=== PATIENT | female | born 1955 | race Caucasian/White ===

== ENCOUNTER 2024-08-03 14:01 | Inpatient (IN) | payer MEDICARE, OTHER, SELFPAY ==
[2024-08-03 12:26] VITALS: BP 123/80
[2024-08-03 12:52] LABS: % Eosinophils 3.2 % (0-6); % Immature Granulocytes 0.4 % (0-0.5); % Lymphocytes 39.9 % (20.5-51.1); % Monocytes 7.5 % (1.7-9.3); Absolute Basophils 0.1 10^3/uL (0-0.2); Absolute Eosinophils 0.3 10^3/uL (0-0.7); Absolute Lymphocytes 3.1 10^3/uL (1.2-3.4); Absolute Monocytes 0.6 10^3/uL (0.1-0.6); Absolute Neutrophils 3.7 10^3/uL (1.4-6.5); Hematocrit 33.7 % (37.0-47.0); Hemoglobin 10.9 g/dL (12.0-16.0); Mean Corp Hgb Conc. 32.3 g/dL (33.0-37.0); Mean Corpuscular Hgb 29.3 pg (27.0-31.0); Mean Corpuscular Volume 90.6 fL (81.0-99.0); Mean Platelet Volume 9.2 fL (7.4-10.4); Nucleated Red Blood Cells % 0 %; Platelet Count 281 10^3/uL (130-400); Red Blood Cell Count 3.72 10^6/uL (4.20-5.40); Red Cell Dist. Width 13.8 % (11.5-14.5); White Blood Cell Count 7.7 10^3/uL (4.8-10.8)
[2024-08-03 12:57] VITALS: BMI 38.7
[2024-08-03 13:05] LABS: APTT 32.2 Sec (23.4-35.0); INR 1.31; PT 16.3 Sec (11.4-14.6)
[2024-08-03 13:08] LABS: ALT (SGPT) 20 U/L (0-35); AST (SGOT) 22 U/L (14-36); Blood Urea Nitrogen 38 mg/dl (7-17); Calcium 9.2 mg/dl (8.4-10.2); Carbon Dioxide 21 mmol/L (22-30); Chloride 106 mmol/L (98-107); Estimated Creatinine Clearance 71 ml/min; Glucose 102 mg/dl (70-99); Potassium 4.2 mmol/L (3.5-5.1); Sodium 139 mmol/L (135-145); Total Bilirubin 0.9 mg/dl (0.2-1.3); Total Protein 6.3 g/dl (6.3-8.2); eGFR > 60.00
--- NOTE | 2024-08-03 13:27 | ED.GENMED ---
History of Present Illness
General
Chief Complaint: Rectal Bleeding
Source: patient
Exam Limitations: none
Time Seen by Provider: 08/03/24 13:03
History of Present Illness
History of Present Illness:
See MDM
Past History
Past History
ED Past Medical History: Arrthythmia, Cancer, Hypercholesterolemia and Hypothyroidism
ED Past Surgical History: Cholecystectomy and Other
Social History
Tobacco: Non-smoker
Alcohol: Occasional
Personal:
Living: with family
Employment: Employed
Family History
Family History: Other (a sister with atrial fibrillation)
Phy Exam
Physical Exam
Physical Exam:
See MDM
Course
Orders/Labs/Results
Orders:
Orders
08/03/24 12:30
Electrocardiogram (*1) Urgent
Reason for Study: Vertigo / Dizzy
EKG- Treatment ONCE
08/03/24 12:36
Cardiac Monitoring- Treatment ONCE
IV Insert/Care/Rem.- Treatment PRN
O2 Therapy [RESP] Urgent
Titrate/Wean O2 to maintain O2 sat greater than (%): 93
Special Instructions: MAINTAIN CONTINOUS O2 SATS > OR = 93%
08/03/24 12:38
Type+Screen Urgent
Complete Blood Count/With Diff Urgent
Comprehensive Metabolic Panel Urgent
PTT Urgent
Prothrombin Time Urgent
08/03/24 13:25
Consult Gastroenterology [GASTROINTESTINAL CONSULT] Routine
Consulting Provider: Jonathon Livingston
Was physician already notified: Yes
08/03/24 13:27
Pantoprazole 80 mg/ 100 mL 8 mg/hr NOW X 1 BAG Pantoprazole 80 mg/100 ml Nss [Protonix] 80 mg in 100 ml IV NOW
Pantoprazole [Protonix IV] 80 mg IV NOW STA
Abnormal Lab Results
08/03/24
12:38
RBC 3.72 L 10^6/uL
(4.20-5.40)
Hgb 10.9 L g/dL
(12.0-16.0)
Hct 33.7 L %
(37.0-47.0)
MCHC 32.3 L g/dL
(33.0-37.0)
PT 16.3 H Sec
(11.4-14.6)
Carbon Dioxide 21 L mmol/L
(22-30)
BUN 38 H mg/dl
(7-17)
Glucose 102 H mg/dl
(70-99)
08/03/24 12:38
08/03/24 12:38
Vital Signs
Initial and Last Documented VS:
Initial Vital Signs
Temp Pulse Resp BP Pulse Ox
98.4 F 87 16 123/80 98
08/03/24 12:26 08/03/24 12:26 08/03/24 12:26 08/03/24 12:26 08/03/24 12:26
Last Documented Vital Signs
Temp Pulse Resp BP Pulse Ox
98.4 F 87 16 123/80 98
08/03/24 12:26 08/03/24 12:26 08/03/24 12:26 08/03/24 12:08/03/24 12:26
MDM/Problems Addressed
Differential Diagnosis Includes:
HPI and MDM Narrative:
69-year-old female presenting for evaluation of mild epigastric discomfort and 1 episode of black stool. Patient is on Eliquis for history of A-fib. However, she is in sinus rhythm and has had an ablation. She took her dose this morning. She
noted the black stool at 10 AM this morning. This is very similar presentation to her upper GI bleeding she had last year. That time, she had an endoscopy showing a nonbleeding gastric ulcer.
Rectal exam performed confirming the melanotic stool. Patient started on PPI bolus and drip and GI made aware
Physical exam
General: Well appearing and non-toxic
HEENT: protecting airway
Neck: appears supple
CV: No evidence of cyanosis
Resp: No accessory muscle use
Abd: Non-distended. Mild epigastric discomfort
Rectal exam: Performed with nurse Jackeline at bedside. Stool is melanotic and guaiac positive
Extremities: Nonpitting dependent edema both legs
Neuro: alert
Psych: Normal affect
Skin: Intact
Problems Addressed including Acute and Chronic Conditions affecting care:
1. Upper GI bleeding
Acuity: acute
Prognosis: unstable
Details: Melena confirmed at bedside. Patient has a baseline anemia. I did have her sign consent for blood if needed during this admission. Patient started on PPI bolus and drip
2. Anemia
Acuity: Chronic
Prognosis: stable
Details: Currently at baseline
Updates
Differential Diagnosis (but not limited to): Stress ulcer, gastric ulcer, peptic ulcer disease
Testing considered: CT abdomen/pelvis but no significant tenderness noted
Drug therapy (if applicable): OTC meds, please see d/c instruction regarding Rx drugs
Amount and/or Complexity of Data Reviewed
Clinical info obtained from: Patient
External data reviewed: N/A
Labs I independently reviewed (but not limited to): Baseline anemia
Radiology: N/A
Pulse Ox: not hypoxic
EKG independently reviewed: N/A
Manager Cardiology: N/A
Critical Care: The high probability of a clinically significant, sudden or life threatening deterioration of the gastroenterology system(s) required my full and direct attention, intervention and personal management. The aggregate critical care time
was 33 minutes. This time is in addition to time spent performing reported procedures but includes the following:
[x] Data Review and interpretation
[x] Patient assessment and monitoring of vital signs
[x] Documentation
[x] Medication orders and management
Risk of Complication:
Social Determinants of health: Good social support
Discussed with other providers: Hospitalist and property accountant
Escalation of Care includes Admit/Obs: Given concern for active upper GI bleeding while on Eliquis, will admit
Occasional wrong word or 'sound a like' substitutions may have occurred due to the inherent limitations of voice recognition software. Read the chart carefully and recognize, using context, where substitutions have occurred.
*Critical Care Note
Total Time (30-74mins, 75-104mins- exclusive of procedures): 33 min
ED Attending Note
-
Portions of this chart may have been created with voice recognition software.� Occasional wrong word or��sound alike� substitutions may have occurred due to the inherent limitations of voice recognition software.
Discharge Plan
Departure
Date of Disposition: 08/03/24
Time of Disposition: 13:31
Admit to: Telemetry
Presentation/result/management discussed w/ accepting MD/DO: Hospitalist
Prescriptions:
No Action
levothyroxine 50 MCG tablet
50 mcg PO DAILY
atorvastatin 20 MG tablet
20 mg PO QPM
sertraline 25 mg Tablet
25 mg PO DAILY
Eliquis 5 mg Tablet
5 mg PO BID
pantoprazole 40 mg Tablet,Delayed Release (Dr/Ec)
40 mg PO BID Qty: 120 0RF
diltiazem HCl 240 mg capsule,extended release 24 hr
240 mg PO DAILY Qty: 90 5RF
Interventions
Interventions:
*Risk Screen - Suicide Last Done: 08/03/24 12:26
*General Assessment Last Done: 08/03/24 12:26
*Neglect/Abuse Screening Last Done: 08/03/24 12:26
ED- Fall Risk Assessment Last Done: 08/03/24 12:57
*ED COVID-19 Vaccine History Last Done: 08/03/24 12:26
MA-Ibjcfd-Vjppqvlglh Assessment Last Done: 08/03/24 12:57
ED- Cardiac Assessment Last Done: 08/03/24 12:57
ED- Pulmonary Assessment Last Done: 08/03/24 12:57
Discharge Date and Time
Print Language: WOLOF
[2024-08-03 13:29] LABS: Alkaline Phosphatase 60 U/L (38-126)
--- NOTE | 2024-08-03 13:51 | HPS.HSE ---
Family Physician
-
Family Physician: Magnus Miles
Chief Complaint
-
black stool
History of Present Illness
69-year-old female past medical history of upper GI bleeding, gastric ulcer, paroxysmal atrial fibrillation, hypercholesteremia, hypothyroidism, chronic back pain, anxiety/depression, presenting with 1 episode of black stool today. She has been
feeling a little bit unwell for the past few day with some dizziness yesterday and shortness of breath with exertion yesterday. She has been having intermittent epigastric pain at times recently but denies any chest pain. Did have some nausea but
no vomiting. Denies fevers or chills.
Patient was admitted last year for black stools and had endoscopy which showed 2 cm hiatal hernia, nonbleeding gastric ulcer.
Drinks alcohol occasionally. Denies smoking
Medical History
Past Medical History
Past Medical History: Reports Other ( upper GI bleeding, gastric ulcer, paroxysmal atrial fibrillation, hypercholesteremia, hypothyroidism, chronic back pain, anxiety/depression,)
Past Surgical History: Reports Other (cataract surgery )
Social History
Tobacco: Non-smoker
Alcohol: Occasional
Drug: None
Family History
Family History: Not pertinent
Allergies / Home Medications
Allergies reflects when Allergies were last updated in [facility].
Home Medications with original date entered in [facility]
Allergy/Medication List:
Allergies
Allergy/AdvReac Type Severity Reaction Status Date / Time
No Known Allergies Allergy Verified 08/03/24 12:30
Home Medications
levothyroxine 50 mcg tablet 50 mcg PO DAILY Thyroid 04/10/13
atorvastatin 20 mg tablet 20 mg PO QPM High Cholesterol 04/17/21
apixaban 5 mg tablet (Eliquis) 5 mg PO BID Blood Clot Prevention/Tx 06/17/23
sertraline 25 mg tablet 25 mg PO DAILY Mental Health/Anxiety 06/17/23
diltiazem HCl 240 mg capsule,24 hr,extended release 240 mg PO DAILY #90 caps 07/22/23
moxifloxacin 0.5 % eye drops 1 drp RIGHT EYE QID 08/03/24
pantoprazole 40 mg tablet,delayed release 40 mg PO QPM Gastrointestinal issue 08/03/24
prednisolone acetate 1 % eye drops,suspension 1 drp RIGHT EYE QID 08/03/24
therapeutic multivitamin 1 tab PO DAILY 08/03/24
Review of Systems
-
History Source: Patient
A 12 point ROS was completed and negative except as noted: Yes
Constitutional: Reports No Symptoms
EENT: Reports No Symptoms
Respiratory: Reports No Symptoms
Cardiac: Reports No Symptoms
Abdomen/GI: Reports No Symptoms
: Reports No Symptoms
Musculoskeletal: Reports No Symptoms
Skin: Reports No Symptoms
Neurological: Reports No Symptoms
Endocrine: Reports No Symptoms
Hematologic/Lymphatic: Reports No Symptoms
Psych: Reports No Symptoms
Physical Exam
Vital Signs
Vital Signs
Temp Pulse Resp BP Pulse Ox
98.4 F 87 16 123/80 98
08/03/24 12:26 08/03/24 12:26 08/03/24 12:26 08/03/24 12:26 08/03/24 12:26
Physical Exam
General: Well Developed, Well Nourished and No Apparent Distress
HEENT: NormoCephalic, Moist mucous membranes and Atraumatic
Respiratory: Clear
Cardiac: S1/S2 and Regular Rhythm; No Murmur or Rub
GI: Soft, Non Tender, Non Distended and Normal Bowel Sounds; No Organomegaly
Rectal: Deferred by Provider
Musculoskeletal: No Clubbing, No Cyanosis and No Edema
Skin: No Rash
Neuro: Nonfocal/grossly intact
Laboratory Results
-
08/03/24 12:38
08/03/24 12:38
Laboratory Results
PT 16.3 Sec (11.4-14.6) H 08/03/24 12:38
INR 1.31 08/03/24 12:38
APTT 32.2 Sec (23.4-35.0) 08/03/24 12:38
Total Bilirubin 0.9 mg/dl (0.2-1.3) 08/03/24 12:38
AST 22 U/L (14-36) 08/03/24 12:38
ALT 20 U/L (0-35) 08/03/24 12:38
Alkaline Phosphatase 60 U/L (38-126) 08/03/24 12:38
Data Reviewed
-
Lab Data: Labs Reviewed by me
Old Records: Reviewed
Impression/Plan
-
IMPRESSION:
PLAN:
# Upper GI bleeding likely secondary to gastric ulcer
# History of gastric ulcer/hiatal hernia
-Hemoglobin 10.9, although with symptoms
-Hold Eliquis
-Clear liquid diet, n.p.o. past midnight
-Protonix drip
-GI consulted
Paroxysmal atrial fibrillation
-Hold Eliquis
-Continue diltiazem
Hypercholesterolemia
-Continue statin
Hypothyroidism
-Continue levothyroxine
Chronic back pain
Anxiety/depression
-Continue sertraline
History of cataract surgery right eye
-Continue eyedrops
Full code
DVT prophylaxis�SCDs
N.p.o.
[2024-08-03] MEDS: PROTONIX IV 80 MG IV (14:24)
[2024-08-03] MEDS: PROTONIX 100 IV (14:24)
--- NOTE | 2024-08-03 15:00 | PTCARENOTE ---
08/03- Patient transferred and oriented to unit without issue. AAOX3; Skin CDI; Dizziness upon standing. Notified Physician for Orthostatic VS. Patient denies any current needs.
[2024-08-03 15:15] VITALS: BP 128/72
[2024-08-03 16:26] VITALS: BP 121/78; BP 125/64; BP 132/79; PULSE 111; PULSE 113; PULSE 98
--- NOTE | 2024-08-03 16:26 | CON.GI ---
Consultation
-
Date/Time Consultation Requested: 08/03/24 at 3pm
Date/Time Consultation Performed: 08/03/24 4:30
Requesting Provider: Westley
Performing Provider: Yara
Reason for Consultation: UGIB
Medical History
Chief Complaint / HPI
Chief Complaint: bleeding
History of Present Illness:
This patient is a 6-year-old woman with a past medical history of peptic ulcer disease diagnosed in the fall 2022 while an inpatient. At that time she presented with bleeding and had an upper endoscopy by Dr. Landers. It did show an antral ulcer
with stigmata of bleeding. She subsequently was discharged and had a repeat endoscopy 2 months later that showed resolution of all stigmata. She does have a history of paroxysmal atrial fibrillation and is on anticoagulation, her last dose of
eliquis was this am. She did present to the emergency room with 1 black stool today. She did mention having a history of some dizziness and dyspepsia. She has not had any hematemesis.
She did have cataract surgery and thought it may have been related. she only had steroid eye drops and 1 ibuprofen. She is on a PPI daily
Past Medical History
Past Medical History: Other (Atrial fibrillation, gastric ulcer, hypothyroidism, back pain, anxiety.)
Past Surgical History: Other (Cataract surgery)
Social History
Tobacco: Non-Smoker
Family History
Family History: Reviewed & Not Pertinent
Allergies / Home Medications
Allergy/AdvReac Type Severity Reaction Status Date / Time
No Known Allergies Allergy Verified 08/03/24 12:30
�Medication �Instructions �Recorded
levothyroxine 50 mcg tablet 50 mcg PO DAILY Thyroid 04/10/13
atorvastatin 20 mg tablet 20 mg PO QPM High Cholesterol 04/17/21
apixaban 5 mg tablet (Eliquis) 5 mg PO BID Blood Clot 06/17/23
Prevention/Tx
sertraline 25 mg tablet 25 mg PO DAILY Mental 06/17/23
Health/Anxiety
diltiazem HCl 240 mg capsule,24 240 mg PO DAILY #90 caps 07/22/23
hr,extended release
moxifloxacin 0.5 % eye drops 1 drp RIGHT EYE QID 08/03/24
pantoprazole 40 mg tablet,delayed 40 mg PO QPM Gastrointestinal issue 08/03/24
release
prednisolone acetate 1 % eye 1 drp RIGHT EYE QID 08/03/24
drops,suspension
therapeutic multivitamin 1 tab PO DAILY 08/03/24
Review of Systems
Vital Signs
Temp Pulse Resp BP Pulse Ox
98.7 F 87 20 128/72 96
08/03/24 15:15 08/03/24 15:15 08/03/24 15:15 08/03/24 15:15 08/03/24 15:15
Physical Exam
Exam
General: No Apparent Distress
Cardiac: S1/S2
GI: Soft and Non Tender
Neuro: AO x 3
Psych: Calm
Results
WBC 7.7 10^3/uL (4.8-10.8) 08/03/24 12:38
Hgb 10.9 g/dL (12.0-16.0) L 08/03/24 12:38
Hct 33.7 % (37.0-47.0) L 08/03/24 12:38
MCV 90.6 fL (81.0-99.0) 08/03/24 12:38
Plt Count 281 10^3/uL (130-400) 08/03/24 12:38
Absolute Neuts (auto) 3.7 10^3/uL (1.4-6.5) 08/03/24 12:38
PT 16.3 Sec (11.4-14.6) H 08/03/24 12:38
INR 1.31 08/03/24 12:38
APTT 32.2 Sec (23.4-35.0) 08/03/24 12:38
Sodium 139 mmol/L (135-145) 08/03/24 12:38
Potassium 4.2 mmol/L (3.5-5.1) 08/03/24 12:38
Chloride 106 mmol/L (98-107) 08/03/24 12:38
Carbon Dioxide 21 mmol/L (22-30) L 08/03/24 12:38
BUN 38 mg/dl (7-17) H 08/03/24 12:38
Creatinine 0.8 mg/dL (0.6-1.0) 08/03/24 12:38
Calcium 9.2 mg/dl (8.4-10.2) 08/03/24 12:38
Total Bilirubin 0.9 mg/dl (0.2-1.3) 08/03/24 12:38
AST 22 U/L (14-36) 08/03/24 12:38
ALT 20 U/L (0-35) 08/03/24 12:38
Alkaline Phosphatase 60 U/L (38-126) 08/03/24 12:38
Assessment / Plan
-
This patient is a 69-year-old woman with a history of peptic ulcer disease back in 2022. At that time it was due to NSAIDs. She did have 1 black stool and some mild dyspepsia and has not had any since. She is on Eliquis and did have it this
morning. Her hemoglobin is stable although with elevated BUN likely did bleed. For now would do the following:
1. PPI
2. monitor hgb
3. hold eliquis last dose today
4. no more bms today and hopefully self limited
5. ok for clears
6 will decide on timing of egd based on clinical course
-
-
Thank you for consultation and allowing me to participate in the patient's care. Please call the decorating consultant GI physician during the after hours with any questions or concerns.
[2024-08-03] MEDS: LIPITOR 20 MG PO (17:39)
[2024-08-03] MEDS: PRED FORTE 1% EYE DROPS 1 DROP RIGHT EYE ×2 (17:40→21:59)
[2024-08-03 19:30] VITALS: BP 110/71
[2024-08-03] MEDS: ACULAR 0.5% EYE DROPS 1 DROP BOTH EYES (22:08)
[2024-08-03 23:17] VITALS: BP 119/73
[2024-08-04] VITALS (11 sets, daily range): BP systolic 107–127; BP diastolic 64–80
[2024-08-04] MEDS: SYNTHROID 50 MCG PO (05:49)
[2024-08-04 06:39] LABS: % Basophils 0.9 % (0-2); % Eosinophils 3.1 % (0-6); % Immature Granulocytes 0.5 % (0-0.5); % Lymphocytes 34.9 % (20.5-51.1); % Monocytes 7.1 % (1.7-9.3); % Neutrophils 53.5 % (42.2-75.2); Absolute Basophils 0.1 10^3/uL (0-0.2); Absolute Eosinophils 0.2 10^3/uL (0-0.7); Absolute Lymphocytes 2.7 10^3/uL (1.2-3.4); Absolute Monocytes 0.6 10^3/uL (0.1-0.6); Absolute Neutrophils 4.1 10^3/uL (1.4-6.5); Hematocrit 28.9 % (37.0-47.0); Hemoglobin 9.7 g/dL (12.0-16.0); Mean Corp Hgb Conc. 33.6 g/dL (33.0-37.0); Mean Corpuscular Volume 89.5 fL (81.0-99.0); Mean Platelet Volume 9.4 fL (7.4-10.4); Nucleated Red Blood Cells % 0 %; Platelet Count 242 10^3/uL (130-400); Red Blood Cell Count 3.23 10^6/uL (4.20-5.40); Red Cell Dist. Width 13.8 % (11.5-14.5); White Blood Cell Count 7.7 10^3/uL (4.8-10.8)
[2024-08-04 07:03] LABS: ALT (SGPT) 19 U/L (0-35); AST (SGOT) 20 U/L (14-36); Albumin 3.7 g/dl (3.5-5.0); Alkaline Phosphatase 59 U/L (38-126); Blood Urea Nitrogen 32 mg/dl (7-17); Calcium 9.1 mg/dl (8.4-10.2); Carbon Dioxide 22 mmol/L (22-30); Chloride 108 mmol/L (98-107); Estimated Creatinine Clearance 71 ml/min; Glucose 88 mg/dl (70-99); Potassium 4.2 mmol/L (3.5-5.1); Sodium 141 mmol/L (135-145); Total Bilirubin 0.9 mg/dl (0.2-1.3); Total Protein 5.9 g/dl (6.3-8.2); eGFR > 60.00
--- NOTE | 2024-08-04 07:44 | W.PN.GI.CBS2 ---
Today's Communication / Plan
-
Keep NPO, plan for EGD today. Continue IV PPI, rest as outlined below.
Assessment / Plan
-
#Melena #UGIB
#Acute Blood Loss Anemia
#Hx of NSAIDs
#Hx of PUD (2022)
#A Fib (on eliquis)
Impression: This patient is a 69-year-old woman with a history of peptic ulcer disease back in 2022. At that time it was due to NSAIDs and suspicious for recurrent NSAID-induced PUD versus gastroduodenal erosions in setting of recent recurrent
NSAIDs (Motrin). Very low suspicion for LGIB. Last dose of Eliquis yesterday AM on 08/03. Hgb drop from 10s to 9 this AM on 08/04 but without further melena along with down-trending BUN. Potential therapeutic intervention is limited (although could
clip) but would be particularly helpful for prognostication purposes prior to weekend.
Recommendations:
- Keep strict NPO
- IV PPI 40 mg BiD
- Trend Hgb with serial CBC
- Plan for EGD today, 08/04/2024, for further evaluation and potential therapeutic intervention (ie clipping) along with prognostic purposes prior to weekend. Discussed with patient and amenable to procedure. Reviewed risks and benefits at bedside
- Hold eliquis (last dose 08/03)
- Strict Avoidance of all NSAIDs
- Rest of care per primary team
Subjective
Subjective
Date of Service: August 04, 2024
- Hgb 10.9 -> 9.7 and BUN 38 -> 32
- Otherwise no acute events overnight, HD-stable without evidence of compensatory tachycardia
Feeling well, resting comfortably in bed. Denies any further passage of melena overnight or early this AM. Last episode yesterday AM. Otherwise, no abdominal pain, nausea or vomiting. Was taking Motrin a few times last week. Further, last dose of
Eliquis was yesterday morning.
Objective
Data Reviewed
Laboratory Data:
Laboratory Results
08/04/24 06:18
08/04/24 06:18
Laboratory Results
PT 16.3 Sec (11.4-14.6) H 08/03/24 12:38
INR 1.31 08/03/24 12:38
APTT 32.2 Sec (23.4-35.0) 08/03/24 12:38
Total Bilirubin 0.9 mg/dl (0.2-1.3) 08/04/24 06:18
AST 20 U/L (14-36) 08/04/24 06:18
ALT 19 U/L (0-35) 08/04/24 06:18
Alkaline Phosphatase 59 U/L (38-126) 08/04/24 06:18
Vital Signs and I&O:
Vital Signs
Temp Pulse Resp BP Pulse Ox
97.6 F 72 20 110/64 97
08/04/24 03:08 08/04/24 03:08 08/04/24 03:08 08/04/24 03:08 08/04/24 03:08
I&O
08/03/24 08/04/24 08/05/24
06:59 06:59 06:59
Intake Total 1010 / 1010
Balance 1010 / 1010
Physical Exam
Physical Exam
HEENT: Anicteric and Moist mucous membranes
Cardiology: Normal Sinus Rhythm
Pulmonary: Other (Normal WOB on room air)
GI: Soft, Non Distended, Flat and Non Tender
Extremities: No Edema
Neuro: Non Focal and Other
[2024-08-04] MEDS: THERAGRAN PO (08:00)
[2024-08-04] MEDS: ACULAR 0.5% EYE DROPS 1 DROP BOTH EYES ×2 (08:00→16:11)
[2024-08-04] MEDS: PRED FORTE 1% EYE DROPS 1 DROP RIGHT EYE ×3 (08:00→17:56)
[2024-08-04] MEDS: ZOLOFT PO (08:00)
[2024-08-04] MEDS: CARDIZEM CD PO (08:00)
[2024-08-04] MEDS: NSS (PRESERVATIVE FREE) 10 ML IV ×2 (08:28→20:35)
[2024-08-04] MEDS: PROTONIX IV 40 MG IV ×2 (08:28→20:35)
--- NOTE | 2024-08-04 09:01 | W.PN.HOSP.TC ---
Today's Communication/Plan
-
For EGD today
Assessment / Plan
Assessment / Plan
HPI: 69-year-old female past medical history of upper GI bleeding, gastric ulcer, paroxysmal atrial fibrillation, hypercholesteremia, hypothyroidism, chronic back pain, anxiety/depression, presenting with 1 episode of black stool today. She has
been feeling a little bit unwell for the past few day with some dizziness yesterday and shortness of breath with exertion yesterday. She has been having intermittent epigastric pain at times recently but denies any chest pain. Did have some nausea
but no vomiting. Denies fevers or chills. Patient was admitted last year for black stools and had endoscopy which showed 2 cm hiatal hernia, nonbleeding gastric ulcer.
# Upper GI bleeding likely secondary to gastric ulcer, exacerbated by Eliquis use
# History of gastric ulcer/hiatal hernia
-Hold Eliquis, trend hemoglobin
-Appreciate GI input, for endoscopy today
-Continue PPI IV twice daily
Paroxysmal atrial fibrillation
-Hold Eliquis
-Continue diltiazem
Hypercholesterolemia
-Continue statin
Hypothyroidism
-Continue levothyroxine
Chronic back pain
Anxiety/depression
-Continue sertraline
History of cataract surgery right eye
-Continue eyedrops
DVT prophylaxis�SCDs
Full code
Total time spent to see the patient on the floor, examine the patient, review data and lab results, discuss treatment plan with patient, nursing staff around 38 minutes.
Physical Exam
General: Obese, no acute distress
HEENT: Normocephalic, Atraumatic, EOMI, MMM
Respiratory: Clear to Auscultation bilaterally
Cardiac: Normal S1/S2, Regular Rate and Rhythm
GI: Soft, Nontender, Nondistended, Normal Bowel Sounds
Extremities: No Clubbing, Cyanosis, or Edema
Neuro: Nonfocal/Grossly Intact
Psych: Calm, Cooperative
Derm: No Visible lesions
Anticipated Discharge: 24 - 48 hours
Subjective/Interval History
-
Date of Service: August 04, 2024
Patient reports having a black stool this morning. She also has intermittent dizziness with standing. No fever, no vomiting.
Objective Data
-
Labs:
Laboratory Results
08/04/24
06:18
WBC 7.7
Hgb 9.7 L
Hct 28.9 L
Plt Count 242
Sodium 141
Potassium 4.2
Chloride 108 H
Carbon Dioxide 22
BUN 32 H
Creatinine 0.8
Glucose 88
Calcium 9.1
Total Bilirubin 0.9
AST 20
ALT 19
Alkaline Phosphatase 59
Vital Signs:
Vital Signs
Temp Pulse Resp BP Pulse Ox
98 F 81 16 109/70 98
08/04/24 07:00 08/04/24 07:00 08/04/24 07:00 08/04/24 07:00 08/04/24 07:00
I&O
08/03/24 08/04/24 08/05/24
06:59 06:59 06:59
Intake Total 1010 / 1010
Balance 1010 / 1010
--- NOTE | 2024-08-04 11:04 | CM ---
Pt seen at bedside. Pt confirms that she lives in a 2 story home with . will transport home at d/c.
Denies any transportation/food/housing insecurities. 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
Denies any SNF, PT/OT/VN services in the past. Pt drives. Denies any DME at home.
Pharmacy is [facility] in [place]. PCP confirmed.
PT pending, EGD today.
Plan: Anticipate home with needs
[2024-08-04] MEDS: PRED FORTE 1% EYE DROPS RIGHT EYE ×2 (17:19→22:39)
[2024-08-04] MEDS: LIPITOR PO (17:19)
[2024-08-04] MEDS: MAALOX 30 ML PO (17:43)
--- NOTE | 2024-08-04 17:54 | PTCARENOTE ---
08/04- Patient returned to unit from EGD without issue. AAOX3; Skin CDI; no c/o pain or sore throat; POX=99% on RA. Clear Liquid Diet acknowledged and active. Patient denies any complaints or needs at this time.
[2024-08-04] MEDS: LIPITOR 20 MG PO (17:55)
[2024-08-04] MEDS: ACULAR 0.5% EYE DROPS BOTH EYES (22:39)
[2024-08-05 03:38] VITALS: BP 100/61
[2024-08-05] MEDS: SYNTHROID 50 MCG PO (06:13)
[2024-08-05 07:05] VITALS: BP 106/75
--- NOTE | 2024-08-05 07:32 | W.PN.HOSP.TC ---
Today's Communication/Plan
-
For full liquids today
Assessment / Plan
Assessment / Plan
HPI: 69-year-old female past medical history of upper GI bleeding, gastric ulcer, paroxysmal atrial fibrillation, hypercholesteremia, hypothyroidism, chronic back pain, anxiety/depression, presenting with 1 episode of black stool today. She has
been feeling a little bit unwell for the past few day with some dizziness yesterday and shortness of breath with exertion yesterday. She has been having intermittent epigastric pain at times recently but denies any chest pain. Did have some nausea
but no vomiting. Denies fevers or chills. Patient was admitted last year for black stools and had endoscopy which showed 2 cm hiatal hernia, nonbleeding gastric ulcer.
# Upper GI bleeding likely secondary to gastric ulcer, exacerbated by Eliquis use
# History of gastric ulcer/hiatal hernia
-Appreciate GI input, 08/04 endoscopy shows few nonbleeding gastric ulcers, 3 clips were placed
-Continue PPI IV twice daily, hold Eliquis for 3 days, trend hemoglobin
-Strict avoidance of NSAIDs
Paroxysmal atrial fibrillation
-Hold Eliquis
-Continue diltiazem
Hypercholesterolemia
-Continue statin
Hypothyroidism
-Continue levothyroxine
Chronic back pain
Anxiety/depression
-Continue sertraline
History of cataract surgery right eye
-Continue eyedrops
DVT prophylaxis�SCDs
Full code
Total time spent to see the patient on the floor, examine the patient, review data and lab results, discuss treatment plan with patient, nursing staff around 37 minutes.
Physical Exam
General: Obese, no acute distress
HEENT: Normocephalic, Atraumatic, EOMI, MMM
Respiratory: Clear to Auscultation bilaterally
Cardiac: Normal S1/S2, Regular Rate and Rhythm
GI: Soft, Nontender, Nondistended, Normal Bowel Sounds
Extremities: No Clubbing, Cyanosis, or Edema
Neuro: Nonfocal/Grossly Intact
Psych: Calm, Cooperative
Derm: No Visible lesions
Anticipated Discharge: Within 24 hours
Subjective/Interval History
-
Date of Service: August 05, 2024
Reports having a black stool yesterday. Lightheadedness with walking resolved. No fever, no vomiting.
Objective Data
-
Labs:
Laboratory Results
08/05/24
06:00
WBC Pending
Hgb Pending
Hct Pending
Plt Count Pending
Sodium Pending
Potassium Pending
Chloride Pending
Carbon Dioxide Pending
BUN Pending
Creatinine Pending
Glucose Pending
Calcium Pending
Vital Signs:
Vital Signs
Temp Pulse Resp BP Pulse Ox
98.4 F 78 16 100/61 98
08/05/24 03:38 08/05/24 03:38 08/05/24 03:38 08/05/24 03:38 08/05/24 03:38
I&O
08/04/24 08/05/24 08/06/24
06:59 06:59 06:59
Intake Total 1010 / 1010 960 / 960
Balance 1010 / 1010 960 / 960
[2024-08-05 08:52] LABS: Mean Corp Hgb Conc. 33.3 g/dL (33.0-37.0); Mean Corpuscular Volume 92.9 fL (81.0-99.0); Mean Platelet Volume 9.5 fL (7.4-10.4); Platelet Count 229 10^3/uL (130-400); Red Blood Cell Count 3.23 10^6/uL (4.20-5.40); Red Cell Dist. Width 13.9 % (11.5-14.5); White Blood Cell Count 6.2 10^3/uL (4.8-10.8)
[2024-08-05] MEDS: ACULAR 0.5% EYE DROPS 1 DROP BOTH EYES ×3 (09:11→20:02)
[2024-08-05] MEDS: PRED FORTE 1% EYE DROPS 1 DROP RIGHT EYE ×3 (09:12→20:01)
[2024-08-05] MEDS: THERAGRAN 1 TABLET PO (09:15)
[2024-08-05] MEDS: ZOLOFT 25 MG PO (09:15)
[2024-08-05] MEDS: CARDIZEM CD 240 MG PO (09:15)
[2024-08-05] MEDS: NSS (PRESERVATIVE FREE) 10 ML IV ×2 (09:16→19:58)
[2024-08-05] MEDS: PROTONIX IV 40 MG IV ×2 (09:16→19:57)
--- NOTE | 2024-08-05 09:58 | W.PN.GI.CBS2 ---
Today's Communication / Plan
-
adv to full liquids
trend HB
Assessment / Plan
-
#Melena #UGIB
#Acute Blood Loss Anemia
#Hx of NSAIDs
#Hx of PUD (2022)
#A Fib (on eliquis)
Impression: This patient is a 69-year-old woman with a history of peptic ulcer disease back in 2022. At that time it was due to NSAIDs and suspicious for recurrent NSAID-induced PUD versus gastroduodenal erosions in setting of recent recurrent
NSAIDs (Motrin). Very low suspicion for LGIB. Last dose of Eliquis yesterday AM on 08/03. Hgb drop from 10s to 9 this AM on 08/04 but without further melena along with down-trending BUN. Potential therapeutic intervention is limited (although could
clip) but would be particularly helpful for prognostication purposes prior to weekend.
Recommendations:
Urgent EGD yesterday showed gastric ulcers and one of the antral ulcers had nonbleeding visible vessel and 3 clips were placed. She did have 2 episodes of dark stools last night most likely old blood, hemoglobin remained stable
Continue PPI twice daily for 8 weeks and then daily indefinitely given prior history of recurrent peptic ulcer disease with GI bleed and on anticoagulation
Strictly avoid NSAIDs discussed with patient
Will advance diet to full liquids and if hemoglobin stable and no further bleeding could advance to low residue diet for dinner
If no further bleeding possible DC tomorrow
Restart Eliquis on Wednesday if no further bleeding
Repeat endoscopy in 8 weeks to check for healing and also take biopsies to rule out H. pylori with Dr. Landers her OP
Subjective
Subjective
Date of Service: August 05, 2024
She had 2 episodes of dark stools last night, no abdominal pain no hematemesis, hemoglobin remained stable. Tolerated liquid diet noted results of EGD
Objective
Data Reviewed
Laboratory Data:
Laboratory Results
08/05/24 08:35
Laboratory Results
PT 16.3 Sec (11.4-14.6) H 08/03/24 12:38
INR 1.31 08/03/24 12:38
APTT 32.2 Sec (23.4-35.0) 08/03/24 12:38
Total Bilirubin 0.9 mg/dl (0.2-1.3) 08/04/24 06:18
AST 20 U/L (14-36) 08/04/24 06:18
ALT 19 U/L (0-35) 08/04/24 06:18
Alkaline Phosphatase 59 U/L (38-126) 08/04/24 06:18
Vital Signs and I&O:
Vital Signs
Temp Pulse Resp BP Pulse Ox
98.1 F 72 18 118/70 97
08/05/24 07:05 08/05/24 09:15 08/05/24 07:05 08/05/24 09:15 08/05/24 07:05
I&O
08/04/24 08/05/24 08/06/24
06:59 06:59 06:59
Intake Total 1010 / 1010 960 / 960
Balance 1010 / 1010 960 / 960
Physical Exam
Physical Exam
Cardiology: Normal Sinus Rhythm
Pulmonary: Clear
GI: Soft, Non Distended, Non Tender and Normal Bowel Sounds
[2024-08-05 10:09] LABS: Blood Urea Nitrogen 21 mg/dl (7-17); Calcium 8.9 mg/dl (8.4-10.2); Carbon Dioxide 21 mmol/L (22-30); Chloride 107 mmol/L (98-107); Estimated Creatinine Clearance 81 ml/min; Glucose 90 mg/dl (70-99); Potassium 4.3 mmol/L (3.5-5.1); Sodium 140 mmol/L (135-145); eGFR > 60.00
[2024-08-05 11:44] VITALS: BP 122/82
[2024-08-05] MEDS: PRED FORTE 1% EYE DROPS RIGHT EYE (13:00)
[2024-08-05 15:49] VITALS: BP 117/72
[2024-08-05] MEDS: LIPITOR 20 MG PO (17:43)
[2024-08-05 19:15] VITALS: BP 123/74
[2024-08-05 23:18] VITALS: BP 135/70
[2024-08-06 03:16] VITALS: BP 139/72
[2024-08-06] MEDS: SYNTHROID 50 MCG PO (05:36)
[2024-08-06 07:06] VITALS: BP 111/67
[2024-08-06 07:22] LABS: Hematocrit 28.7 % (37.0-47.0); Hemoglobin 9.8 g/dL (12.0-16.0); Mean Corp Hgb Conc. 34.1 g/dL (33.0-37.0); Mean Corpuscular Hgb 31.4 pg (27.0-31.0); Mean Platelet Volume 9.9 fL (7.4-10.4); Platelet Count 244 10^3/uL (130-400); Red Blood Cell Count 3.12 10^6/uL (4.20-5.40); White Blood Cell Count 6.8 10^3/uL (4.8-10.8)
[2024-08-06] MEDS: THERAGRAN 1 TABLET PO (08:29)
[2024-08-06] MEDS: NSS (PRESERVATIVE FREE) 10 ML IV (08:29)
[2024-08-06] MEDS: CARDIZEM CD 240 MG PO (08:29)
[2024-08-06] MEDS: ZOLOFT 25 MG PO (08:29)
[2024-08-06] MEDS: PROTONIX IV 40 MG IV (08:29)
[2024-08-06] MEDS: ACULAR 0.5% EYE DROPS 1 DROP BOTH EYES (08:30)
[2024-08-06] MEDS: PRED FORTE 1% EYE DROPS 1 DROP RIGHT EYE (08:30)
--- NOTE | 2024-08-06 08:35 | W.PN.HOSP.TC ---
Today's Communication/Plan
-
Cleared by GI for discharge today
Assessment / Plan
Assessment / Plan
HPI: 69-year-old female past medical history of upper GI bleeding, gastric ulcer, paroxysmal atrial fibrillation, hypercholesteremia, hypothyroidism, chronic back pain, anxiety/depression, presenting with 1 episode of black stool today. She has
been feeling a little bit unwell for the past few day with some dizziness yesterday and shortness of breath with exertion yesterday. She has been having intermittent epigastric pain at times recently but denies any chest pain. Did have some nausea
but no vomiting. Denies fevers or chills. Patient was admitted last year for black stools and had endoscopy which showed 2 cm hiatal hernia, nonbleeding gastric ulcer.
# Upper GI bleeding likely secondary to gastric ulcer, exacerbated by Eliquis use
# History of gastric ulcer/hiatal hernia
-Appreciate GI input, 08/04 endoscopy shows few nonbleeding gastric ulcers, 3 clips were placed
-Continue PPI IV twice daily, hold Eliquis for 3 days, trend hemoglobin
-Hemoglobin stable, medically stable for discharge
-Patient can resume Eliquis on Wednesday 08/08
-Continue PPI twice daily for 8 weeks and then daily indefinitely
-Strict avoidance of NSAIDs
-Follow-up with GI in the office, and her PCP in 1 week for repeat CBC
Paroxysmal atrial fibrillation
-Hold Eliquis
-Continue diltiazem
Hypercholesterolemia
-Continue statin
Hypothyroidism
-Continue levothyroxine
Chronic back pain
Anxiety/depression
-Continue sertraline
History of cataract surgery right eye
-Continue eyedrops
DVT prophylaxis�SCDs
Full code
Physical Exam
General: Obese, no acute distress
HEENT: Normocephalic, Atraumatic, EOMI, MMM
Respiratory: Clear to Auscultation bilaterally
Cardiac: Normal S1/S2, Regular Rate and Rhythm
GI: Soft, Nontender, Nondistended, Normal Bowel Sounds
Extremities: No Clubbing, Cyanosis, or Edema
Neuro: Nonfocal/Grossly Intact
Psych: Calm, Cooperative
Derm: No Visible lesions
Anticipated Discharge: Today
Subjective/Interval History
-
Date of Service: August 06, 2024
No bowel movement. No chest pain, shortness of breath. No fever, no vomiting.
Objective Data
-
Labs:
Laboratory Results
08/06/24
05:40
WBC 6.8
Hgb 9.8 L
Hct 28.7 L
Plt Count 244
Vital Signs:
Vital Signs
Temp Pulse Resp BP Pulse Ox
97.7 F 77 18 111/67 94
08/06/24 07:06 08/06/24 07:06 08/06/24 07:06 08/06/24 07:06 08/06/24 07:06
I&O
08/05/24 08/06/24 08/07/24
06:59 06:59 06:59
Intake Total 960 / 960 640 / 640
Balance 960 / 960 640 / 640
--- NOTE | 2024-08-06 10:36 | W.DCSUMMARY ---
Discharge Summary
Discharge Data
Date of Admission: 08/03/24
Date of Discharge: 08/06/24
-
Pending Results: No
Hospital Course
Discharge diagnosis:
Upper gastrointestinal bleed secondary to gastric ulcers
Acute blood loss anemia exacerbated by Eliquis
Paroxysmal atrial fibrillation on Eliquis
Hyperlipidemia
Hypothyroidism
Obesity due to excess calories
Consults: GI
Procedures: 08/04/2024 endoscopy
Impression: - Few, non-bleeding gastric ulcers with a clean ulcer
base (Emmanuel Class III) found in the gastric antrum
- Non-bleeding gastric antral ulcer with a nonbleeding
visible vessel (Emmanuel Class IIa). No thermal therapy
could be applied given recent anticoagulation. A total
of three hemoclips were placed for hemostasis. There
was no bleeding or oozing after the maneuever.
- Otherwise, normal stomach on direct and retroflexion
views. Biopsies from the stomach and ulcers were not
obtained given recent anticoagulation.
- Normal examined duodenum up to the third portion
without any additional ulcerations or erosions.
- Normal esophagus.
- The examination was otherwise normal without any
fresh or old blood throughout the examined upper GI
tract.
- No specimens collected.
Hospital course:
69-year-old female with a past medical history of upper GI bleeding, gastric ulcer, paroxysmal atrial fibrillation on Eliquis, hypercholesteremia, hypothyroidism, chronic back pain, and anxiety/depression was admitted for melena. Patient was seen
in conjunction with GI. Patient's Eliquis was held, she was treated with Protonix 40 mg IV twice daily. Endoscopy shows few nonbleeding gastric ulcers, 3 clips were placed. Patient's melena resolved. Her hemoglobin was monitored. It was 10.9
upon admission, and remained stable at 9.7, and 9.8 on the day of discharge. She has been counseled to avoid all NSAID medications. GI recommends that patient hold her Eliquis upon discharge, she can resume it on 08/08/2024. She will be discharged
on Protonix 40 mg p.o. twice a day for 8 weeks, then daily. She needs to follow-up with her primary care doctor in 1 week for repeat CBC, GI in the office in 3-4 weeks.
Disposition: Home self-care
Discharge planning: Required 41 minutes
Discharge Plan
-
Patient Disposition: Home (Routine Discharge)
Discharge Diagnosis/Procedures: Acute blood loss anemia, gastric ulcers, paroxysmal atrial fibrillation
Condition: Good
Diet: Low Fat and Low Cholesterol
Activity: As tolerated
Driving Restrictions: As prior to admission
Blood Work: CBC with your PCP in 1 week
Activity Restrictions/Additional Instructions:
The GI doctor recommends pantoprazole 40 mg twice a day for 8 weeks, then daily.
Please avoid all [id number] NSAID medications such as ibuprofen, naproxen, Aleve, Motrin, Advil.
Follow-up with your primary care doctor in 1 week, and GI in the office in 3-4 weeks.
Referrals:
Hina Landers MD [Active] - in three to four weeks
Magnus Miles Jr., DO [Family Provider] - in one week
Prescriptions:
Continued
levothyroxine 50 MCG tablet
50 mcg PO DAILY
atorvastatin 20 MG tablet
20 mg PO QPM
sertraline 25 mg Tablet
25 mg PO DAILY
diltiazem HCl 240 mg capsule,extended release 24 hr
240 mg PO DAILY Qty: 90 5RF
prednisolone acetate 1 % drops,suspension
1 drp RIGHT EYE QID
moxifloxacin 0.5 % drops
1 drp RIGHT EYE QID
therapeutic multivitamin Tablet
1 tab PO DAILY
ketorolac 0.5 % Drops
1 drp BOTH EYES TID
pantoprazole 40 mg tablet,delayed release (DR/EC)
40 mg PO BID Qty: 60 0RF
Held
Eliquis 5 mg Tablet
5 mg PO BID
Hold Instructions: Resume on 08/08/24.
Discharge Orders:
Discharge Patient (As Directed); Ordered 08/06/24
Ordered By: Chapin Gupta
Discharge Date and Time
Discharge Date/Time: 08/06/24 12:37
Print Language: BERMUDIAN
--- NOTE | 2024-08-06 11:14 | CM ---
Cm met with pt bedside
DC order noted
No dc needs identified
IMM completed on 08/04 by prior CM
Discharge Disposition- home, no needs
--- NOTE | 2024-08-06 11:14 | W.PN.GI.CBS2 ---
Today's Communication / Plan
-
DC today if tolerates diet
Assessment / Plan
-
#Melena #UGIB
#Acute Blood Loss Anemia
#Hx of NSAIDs
#Hx of PUD (2022)
#A Fib (on eliquis)
Impression: This patient is a 69-year-old woman with a history of peptic ulcer disease back in 2022. At that time it was due to NSAIDs and suspicious for recurrent NSAID-induced PUD versus gastroduodenal erosions in setting of recent recurrent
NSAIDs (Motrin). Very low suspicion for LGIB. Last dose of Eliquis yesterday AM on 08/03. Hgb drop from 10s to 9 this AM on 08/04 but without further melena along with down-trending BUN. Potential therapeutic intervention is limited (although could
clip) but would be particularly helpful for prognostication purposes prior to weekend.
Recommendations:
Urgent EGD 08/04 showed gastric ulcers and one of the antral ulcers had nonbleeding visible vessel and 3 clips were placed. hemoglobin remains stable now
no further melena
Continue PPI twice daily for 8 weeks and then daily indefinitely given prior history of recurrent peptic ulcer disease with GI bleed and on anticoagulation
Strictly avoid NSAIDs discussed with patient
adv diet
OK to DC today
Restart Eliquis on Wednesday if no further bleeding
Repeat endoscopy in 8 weeks to check for healing and also take biopsies to rule out H. pylori with Dr. Landers her OP
Subjective
Subjective
Date of Service: August 06, 2024
No further bleeding
Hemoglobin stable and BUN trending down
Objective
Data Reviewed
Laboratory Data:
Laboratory Results
08/06/24 05:40
08/05/24 08:35
Laboratory Results
PT 16.3 Sec (11.4-14.6) H 08/03/24 12:38
INR 1.31 08/03/24 12:38
APTT 32.2 Sec (23.4-35.0) 08/03/24 12:38
Total Bilirubin 0.9 mg/dl (0.2-1.3) 08/04/24 06:18
AST 20 U/L (14-36) 08/04/24 06:18
ALT 19 U/L (0-35) 08/04/24 06:18
Alkaline Phosphatase 59 U/L (38-126) 08/04/24 06:18
Vital Signs and I&O:
Vital Signs
Temp Pulse Resp BP Pulse Ox
97.7 F 77 18 111/67 94
08/06/24 07:06 08/06/24 07:06 08/06/24 07:06 08/06/24 07:06 08/06/24 07:06
I&O
08/05/24 08/06/24 08/07/24
06:59 06:59 06:59
Intake Total 960 / 960 640 / 640
Balance 960 / 960 640 / 640
Physical Exam
Physical Exam
Cardiology: Normal Sinus Rhythm
Pulmonary: Clear
GI: Soft, Non Distended, Non Tender and Normal Bowel Sounds
[2024-08-06 11:15] VITALS: BP 111/73
== END 2024-08-06 12:37 | disposition home or self-care (01) | DRG 378 ==
LOC: 4 WEST ACU 14:01
PROVIDERS: Emergency Medicine; Internal Medicine Gastroenterology; ADMITTING PHYSICIAN Hospitalist; ATTENDING PHYSICIAN Family Medicine; CONSULT PHYSICIAN Internal Medicine; EMERGENCY PHYSICIAN Student in an Organized Health Care Education/Training Program; FAMILY PHYSICIAN Family Medicine
PROC: 0W3P8ZZ Control Bleeding in Gastrointestinal Tract, Via Natural or Artificial Opening Endoscopic (ICD-10-PCS; 2024-08-04)
DX: K25.4 Chronic or unspecified gastric ulcer with hemorrhage (principal); D62 Acute posthemorrhagic anemia; E03.9 Hypothyroidism, unspecified; E66.09 Other obesity due to excess calories; I48.0 Paroxysmal atrial fibrillation; Z68.38 Body mass index [BMI] 38.0-38.9, adult; Z79.01 Long term (current) use of anticoagulants
CPT/HCPCS: 80048; 80053; 85025; 85027; 85610; 85730; 86850; 86900; 86901; 93005; 99291

== ENCOUNTER 2024-08-07 23:49 | Observation (INO) | payer MEDICARE, OTHER, SELFPAY ==
[2024-08-07 17:15] VITALS: BP 133/81
--- NOTE | 2024-08-07 17:23 | ED.PDOC.TRB ---
ED Provider Triage
-
Patient seen by provider in Triage?: Seen in Triage
Attestation: A medical screening examination has been initiated by a qualified medical provider. Based on the assessment performed at this time, it has been determined that an emergent medical condition may exist and the patient has been informed
that further medical evaluation and possible additional diagnostic testing may be needed.
HPI: 69yoF here with shortness of breath and dizziness. Still having black stools. Recently admitted for a bleeding gastric ulcer and discharged yesterday.
GENERAL: Alert , in no apparent distress
EYE: No visual abnormalities.
NECK: Trachea midline
ENT: No visible abnormalities.
LUNGS: No acute respiratory distress
NEUROLOGICAL: Alert and oriented
SKIN: Skin intact. No visible changes.
MUSCULOSKELETAL: Moving extremities normally
PSYCH: Normal and appropriate interaction.
This is a medical evaluation conducted in person to initiate diagnostic evaluation and provide initial therapeutics. Please see further documentation by the treating clinician.
CBC, CMP, coags, and EKG ordered.
[2024-08-07 17:38] LABS: % Basophils 0.9 % (0-2); % Eosinophils 3.7 % (0-6); % Immature Granulocytes 0.7 % (0-0.5); % Lymphocytes 28.8 % (20.5-51.1); % Monocytes 7.1 % (1.7-9.3); % Neutrophils 58.8 % (42.2-75.2); Absolute Basophils 0.1 10^3/uL (0-0.2); Absolute Eosinophils 0.4 10^3/uL (0-0.7); Absolute Immature Granulocytes 0.1 10^3/uL (0-0.05); Absolute Lymphocytes 3.1 10^3/uL (1.2-3.4); Absolute Monocytes 0.8 10^3/uL (0.1-0.6); Absolute Neutrophils 6.3 10^3/uL (1.4-6.5); Hematocrit 29.8 % (37.0-47.0); Hemoglobin 10.2 g/dL (12.0-16.0); Mean Corp Hgb Conc. 34.2 g/dL (33.0-37.0); Mean Corpuscular Hgb 31.5 pg (27.0-31.0); Mean Platelet Volume 9.4 fL (7.4-10.4); Nucleated Red Blood Cells % 0.2 %; Platelet Count 295 10^3/uL (130-400); Red Blood Cell Count 3.24 10^6/uL (4.20-5.40); Red Cell Dist. Width 14.2 % (11.5-14.5); White Blood Cell Count 10.7 10^3/uL (4.8-10.8)
[2024-08-07 17:49] LABS: APTT 26.6 Sec (23.4-35.0); INR 1.09; PT 13.9 Sec (11.4-14.6)
[2024-08-07 18:02] LABS: ALT (SGPT) 22 U/L (0-35); AST (SGOT) 25 U/L (14-36); Albumin 4.5 g/dl (3.5-5.0); Alkaline Phosphatase 75 U/L (38-126); Blood Urea Nitrogen 19 mg/dl (7-17); Calcium 10.2 mg/dl (8.4-10.2); Carbon Dioxide 23 mmol/L (22-30); Chloride 100 mmol/L (98-107); Glucose 105 mg/dl (70-99); Potassium 4.3 mmol/L (3.5-5.1); Sodium 136 mmol/L (135-145); Total Bilirubin 0.8 mg/dl (0.2-1.3); Total Protein 6.8 g/dl (6.3-8.2); eGFR > 60.00
[2024-08-07 20:15] VITALS: BP 131/65
--- NOTE | 2024-08-07 20:18 | ED.GENMED ---
History of Present Illness
General
Chief Complaint: Rectal Bleeding
Time Seen by Provider: 08/07/24 20:18
History of Present Illness
History of Present Illness:
HPI: The patient was admitted here until yesterday related to upper GI bleed. She had been taking NSAIDs and has history of peptic ulcer disease. She was on Eliquis for history of A-fib and was to resume Eliquis tomorrow. More recently she has
been having dyspnea on exertion/shortness of breath, and dizziness. She spoke to Dr. Alfaro who recommended she come back to the hospital.
EXAM:
GENERAL: Well appearing in no distress, room air sats 98%, on digital rectal examination there is a
HEENT: Moist oral mucosa
CARDIOVASCULAR: No murmurs, normal heart rate, regular rhythm, No chest wall tenderness
PULMONARY: No respiratory distress, breath sounds are clear and equal
ABDOMEN: Soft with no peritoneal signs, no tenderness, on digital rectal examination, there is no active bleeding however I did obtain stool which was briskly heme positive, normal finger-nose testing
NEUROLOGIC: Excellent strength all extremities, no coordination deficits
PSYCHIATRIC: Appropriate mental status, normal insight and judgement
EXTREMITIES: Nontender, no edema, moves all extremities equally
SKIN: No rash, no lesions
TIME OF INITIAL ENCOUNTER: 8 PM
NUMBER AND COMPLEXITY OF PROBLEMS ADDRESSED AT THE ENCOUNTER
� Chronic conditions affecting care: Recent GI bleed, A-fib on Eliquis
� Acute Exacerbation and/or Progression of Chronic Illness: This is an acute problem
� Differential Diagnosis includes: GI bleeding, drop in hemoglobin, PE, dehydration
AMOUNT AND/OR COMPLEXITY OF DATA TO BE REVIEWED AND ANALYZED
� I performed an independent evaluation of and my interpretation is:
EKG: Sinus 69, left axis deviation, nonspecific ST abnormality
CT: CTA chest negative for PE
X-rays:
Laboratory Studies: Hemoglobin today is 10.2 slightly higher than yesterday morning was 9.8
Other:
� Review of other/old records: I reviewed records. The patient had endoscopy 08/04/2024 and was found to have nonbleeding antral ulcer and few nonbleeding gastric ulcers with clean base and clips were placed
� Clinical information was obtained by an independent historian: I spoke to the at bedside
� Prescriptions/Medications Considered but not given:
� Further testing considered but not performed:
RISK OF COMPLICATIONS AND/OR MORBIDITY OR MORTALITY OF PATIENT MANAGEMENT
� Social determinants of health affecting care: Lives at home
� Discussion with other providers: I spoke to Dr. Quan several times and initially we consider discharge however ultimately she will stay; Dr. Westfall for admission
� Escalation of care including admission/observation vs risk of discharge considered: Prior to anticipated discharge, the patient voiced significant concern that she still has the unexplained general unwell feeling including
dizziness and is very concerned that she should have an endoscopy more urgently. Dr. Quan was then notified and agrees to likely perform EGD tomorrow. The patient will stay in the hospital for further evaluation.
Past History
Past History
ED Past Medical History: Arrthythmia, Cancer, Hypercholesterolemia and Hypothyroidism
ED Past Surgical History: Cholecystectomy and Other
Social History
Tobacco: Non-smoker
Alcohol: Occasional
Personal:
Living: with family
Employment: Employed
Family History
Family History: Other (a sister with atrial fibrillation)
Phy Exam
Physical Exam
Physical Exam:
See HPI
Course
Orders/Labs/Results
Orders:
Orders
08/07/24 17:17
Electrocardiogram (*1) Urgent
Reason for Study: Vertigo / Dizzy
EKG- Treatment ONCE
08/07/24 17:25
Type+Screen Urgent
Complete Blood Count/With Diff Urgent
Comprehensive Metabolic Panel Urgent
Ferritin Urgent
Comment: ADD ON
Iron Urgent
PT/INR [Prothrombin Time] Urgent
PTT Urgent
Total Iron Binding Urgent
08/07/24 20:28
CT Chest Pe Study Urgent
Comment:
Reason For Exam: PANIAGUA
08/07/24 22:28
Add On- LAB Urgent
Tests Added?: iron, TIBC, ferittin
Abnormal Lab Results
08/07/24
17:25
RBC 3.24 L 10^6/uL
(4.20-5.40)
Hgb 10.2 L g/dL
(12.0-16.0)
Hct 29.8 L %
(37.0-47.0)
MCH 31.5 H pg
(27.0-31.0)
Abs Immat Gran (auto) 0.1 H 10^3/uL
(0-0.05)
Absolute Monos (auto) 0.8 H 10^3/uL
(0.1-0.6)
Immature Gran % 0.7 H %
(0-0.5)
BUN 19 H mg/dl
(7-17)
Glucose 105 H mg/dl
(70-99)
% Saturation 13 L %
(20-50)
08/07/24 17:25
08/07/24 17:25
Vital Signs
Initial and Last Documented VS:
Initial Vital Signs
Temp Pulse Resp BP Pulse Ox
98.1 F 75 16 133/81 98
08/07/24 17:15 08/07/24 17:15 08/07/24 17:15 08/07/24 17:15 08/07/24 17:15
Last Documented Vital Signs
Temp Pulse Resp BP Pulse Ox
98.1 F 75 16 120/55 97
08/07/24 17:15 08/07/24 17:15 08/07/24 17:15 08/07/24 21:00 08/07/24 22:15
*Critical Care Note
Total Time (30-74mins, 75-104mins- exclusive of procedures): Not Applicable
ED Attending Note
-
Portions of this chart may have been created with voice recognition software.� Occasional wrong word or��sound alike� substitutions may have occurred due to the inherent limitations of voice recognition software.
Discharge Plan
Departure
Patient Disposition: Admit
Date of Disposition: 08/07/24
Time of Disposition: 23:11
Presentation/result/management discussed w/ accepting MD/DO: Hospitalist
Discharge Problem:
Dizziness
Prescriptions:
No Action
levothyroxine 50 MCG tablet
50 mcg PO DAILY
atorvastatin 20 MG tablet
20 mg PO QPM
sertraline 25 mg Tablet
25 mg PO DAILY
Eliquis 5 mg Tablet
5 mg PO BID
diltiazem HCl 240 mg capsule,extended release 24 hr
240 mg PO DAILY Qty: 90 5RF
prednisolone acetate 1 % drops,suspension
1 drp RIGHT EYE QID
moxifloxacin 0.5 % drops
1 drp RIGHT EYE QID
therapeutic multivitamin Tablet
1 tab PO DAILY
ketorolac 0.5 % Drops
1 drp BOTH EYES TID
pantoprazole 40 mg tablet,delayed release (DR/EC)
40 mg PO BID Qty: 60 0RF
Referrals:
Magnus Miles Jr. DO [Family Provider] -
Interventions
Interventions:
*Risk Screen - Suicide Last Done: 08/07/24 20:20
*General Assessment Last Done: 08/07/24 20:20
*Neglect/Abuse Screening Last Done: 08/07/24 20:20
*ED COVID-19 Vaccine History Last Done: 08/07/24 20:20
QC-Skhyqy-Qolmbcifnn Assessment Last Done: 08/07/24 20:20
ED- Cardiac Assessment Last Done: 08/07/24 20:20
ED- Pulmonary Assessment Last Done: 08/07/24 20:20
Discharge Date and Time
Print Language: THAI
[2024-08-07 20:19] VITALS: BMI 36.5
[2024-08-07 21:00] VITALS: BP 120/55
[2024-08-07 22:53] LABS: Iron 54 ug/dl (37-170)
[2024-08-07 23:00] VITALS: BP 121/50
[2024-08-07 23:03] LABS: Percent Saturation 13 % (20-50); Total Iron Binding Capacity 395 ug/dl (265-497)
--- NOTE | 2024-08-07 23:53 | HPS.HSE ---
Family Physician
-
Family Physician: Magnus Miles
Chief Complaint
-
lightheadedness
History of Present Illness
This is a 69-year-old white male medical history of paroxysmal atrial fibrillation on Eliquis and diltiazem, hyperlipidemia, hypothyroidism and a history of for recent GI bleed status post EGD and clipping of a nonbleeding ulcer yesterday presents
to the emergency department with ongoing lightheadedness as well as some dyspnea on exertion.
Patient was admitted with melena and had an endoscopy showing a few nonbleeding gastric ulcers, 3 clips were placed and patient's melena resolved. Hemoglobin was stable. It was 9.8 on day of discharge. Patient was continue to hold Eliquis and to
resume actually tomorrow. She was placed on Protonix 40 mg twice daily.
At home patient reported that she continued to feel lightheaded with walking or standing. She also reports dyspnea exertion. She denied palpitations. She denied chest pain. She notes no nausea or vomiting. She denies any diarrhea. She has not
had recurrence of the melena. She has no hematemesis.
She denies any cough fevers or chills.
In the emergency department she was hemodynamically stable with a blood pressure of 120/55 pulse of 75. Hemoglobin was 10.2 up from 9.8 yesterday. She had normal platelet count. White count was normal. Chemistries were within normal limit. ECG
was normal sinus and nonischemic. She had a CT PE study which was negative for PE or any infiltrates.
Medical History
Past Medical History
Past Medical History: Reports Other
Additional Past Medical History:
Proximal atrial fibrillation
Hyperlipidemia
Anxiety
Hypothyroid
Gastric ulcer status post EGD
Past Surgical History: Reports None
Social History
Tobacco: Non-smoker
Alcohol: None
Drug: None
Personal:
Living: With Family
Family History
Family History: Not pertinent
Allergies / Home Medications
Allergies reflects when Allergies were last updated in [facility].
Home Medications with original date entered in [facility]
Allergy/Medication List:
Allergies
Allergy/AdvReac Type Severity Reaction Status Date / Time
No Known Allergies Allergy Verified 08/03/24 12:30
Home Medications
levothyroxine 50 mcg tablet 50 mcg PO DAILY Thyroid 04/10/13
atorvastatin 20 mg tablet 20 mg PO QPM High Cholesterol 04/17/21
apixaban 5 mg tablet (Eliquis) 5 mg PO BID Blood Clot Prevention/Tx 06/17/23
sertraline 25 mg tablet 25 mg PO DAILY Mental Health/Anxiety 06/17/23
diltiazem HCl 240 mg capsule,24 hr,extended release 240 mg PO DAILY #90 caps 07/22/23
ketorolac 0.5 % eye drops 1 drp BOTH EYES TID 08/03/24
moxifloxacin 0.5 % eye drops 1 drp RIGHT EYE QID 08/03/24
prednisolone acetate 1 % eye drops,suspension 1 drp RIGHT EYE QID 08/03/24
therapeutic multivitamin 1 tab PO DAILY 08/03/24
pantoprazole 40 mg tablet,delayed release 40 mg PO BID Gastrointestinal issue #60 tabs 08/06/24
Review of Systems
-
History Source: Patient
Constitutional: Reports No Symptoms
EENT: Reports No Symptoms
Respiratory: Reports Trouble Breathing
Abdomen/GI: Reports No Symptoms
: Reports No Symptoms
Musculoskeletal: Reports No Symptoms
Skin: Reports No Symptoms
Neurological: Reports No Symptoms
Endocrine: Reports No Symptoms
Hematologic/Lymphatic: Reports No Symptoms
Psych: Reports No Symptoms
Physical Exam
Vital Signs
Vital Signs
Temp Pulse Resp BP Pulse Ox
98.1 F 75 16 120/55 97
08/07/24 17:15 08/07/24 17:15 08/07/24 17:15 08/07/24 21:00 08/07/24 22:15
Physical Exam
General: Well Developed, Well Nourished, No Apparent Distress and Comfortable
HEENT: NormoCephalic, Anicteric, Moist mucous membranes and Atraumatic
Respiratory: Clear
Cardiac: S1/S2 and Regular Rhythm
Breast: Deferred by me
GI: Soft, Non Tender, Non Distended and Normal Bowel Sounds
Rectal: Brown and Hem Positive
Genito-urinary: Deferred by me
Musculoskeletal: No Clubbing, No Cyanosis and No Edema
Skin: Warm
Neuro: AO x 3
Hematologic/Lymphatic: No Lymphadenopathy
Psych: Calm
Laboratory Results
-
08/07/24 17:25
08/07/24 17:25
Laboratory Results
PT 13.9 Sec (11.4-14.6) 08/07/24 17:25
INR 1.09 08/07/24 17:25
APTT 26.6 Sec (23.4-35.0) 08/07/24 17:25
Total Bilirubin 0.8 mg/dl (0.2-1.3) 08/07/24 17:25
AST 25 U/L (14-36) 08/07/24 17:25
ALT 22 U/L (0-35) 08/07/24 17:25
Alkaline Phosphatase 75 U/L (38-126) 08/07/24 17:25
Data Reviewed
-
CT Scan: Report Reviewed by me
Medical Tests (Nuc Med, Echo, EKG etc): Image Personally Visualized and interpreted
Lab Data: Labs Reviewed by me
Old Records: Reviewed
Impression/Plan
-
IMPRESSION:
This is a 69-year-old female who had a recent episode of melena status post EGD showing bleeding ulcer with clips. Patient had a ongoing lightheadedness status post procedure and presents again to the emergency department. Found to have a
Hemoccult with dark brown stools in the ED. Hemoglobin is stable or improving. Case was discussed with GI. Patient did had a CT a as well as ECG which showed no evidence of a blood clot and no ischemia. There is minimal to mild iron deficiency
with only low saturation on normal iron levels and ferritin pending.
PLAN:
1. GI bleed -recent melena status post EGD and clipping of nonbleeding ulcer. Hemoglobin is stable. Still has likely residual melanotic stool. She is hemodynamically stable and in no acute distress. GI wanted to re-scope in am given symptoms and
possible early rebleed.
- admit to obs
- continue with iv ppi bid
- hold eliquis
- trend h/h
- NPO for now pending EGD in am
- maintenance fluids
- GI consulted.
2. Light headedness -hemodynamically stable, no ECG ischemia and negative CTA. Possibly due to hypovolemia versus early bleed. There is mild associated on exertion.
- check orthostatics
- iv fluids overnight
- trend h/h
- iron supplementation if necessary
- if above all stable, patient may get outpatient cardiac eval with echo, stress. Last stress was 1.5 years ago and normal. No family hx.
3. Hypothyroid
- continue synthroid
4. AFIB - s/p ablation. regular pulse rate and rhythm
- continue dilt
- holding eliquis pending GI eval
DVT PPX - SCDs
Code status - full code
[2024-08-08] VITALS (21 sets, daily range): BP systolic 100–128; BP diastolic 43–86; PULSE 82–94; BMI 35.4
[2024-08-08 00:23] LABS: Ferritin 28.6 ng/ml (11.1-264.0)
[2024-08-08] MEDS: D5/0.45%NACL 1000 IV (02:17)
[2024-08-08] MEDS: SYNTHROID 50 MCG PO (06:09)
[2024-08-08 06:42] LABS: Hematocrit 27.8 % (37.0-47.0); Hemoglobin 9.4 g/dL (12.0-16.0); Mean Corp Hgb Conc. 33.8 g/dL (33.0-37.0); Mean Corpuscular Hgb 30.9 pg (27.0-31.0); Mean Corpuscular Volume 91.4 fL (81.0-99.0); Mean Platelet Volume 9.3 fL (7.4-10.4); Platelet Count 257 10^3/uL (130-400); Red Blood Cell Count 3.04 10^6/uL (4.20-5.40); Red Cell Dist. Width 14.5 % (11.5-14.5); White Blood Cell Count 8.9 10^3/uL (4.8-10.8)
--- NOTE | 2024-08-08 06:45 | CON.GI ---
Addendum entered and electronically signed by Vanesa Quan MD 08/08/24 12:53:
I saw and examined the patient.
The BEACH EXPERT's note was reviewed and I agree with the note.
Comment: This is a 69 female with past medical history of A-fib on Eliquis, colon polyps, prior history of upper GI bleed and gastric ulcers who recently was admitted from 08/03-08/06 with acute blood loss anemia from upper GI bleed had a urgent
endoscopy on 08/04 and was noted to have gastric ulcers and one of the ulcers was noted with a nonbleeding visible vessel and 3 clips were placed she subsequently did well with no further bleeding and was discharged on 08/06. yesterday she had another
episode of melena and was also feeling dyspnea on exertion and dizziness and presented to the emergency room her hemoglobin was 10.2 and has not had any further episodes of melena she had a CTA of the chest which was negative for PE. She denies any
abdominal pain no nausea vomiting or hematemesis no fevers or chills and no syncopal episode. She is also currently denying any shortness of breath.
Assessment and plan recurrent episode of melena but given stable hemoglobin likely old blood but will schedule her for repeat endoscopy to rule out recurrent bleeding from the ulcers, although I think this is less likely. Continue PPI twice daily.
Her weakness and PANIAGUA could also be related to anemia, I told her to start taking oral iron with vitamin C after discharge. Avoid NSAIDs after DC and can resume Eliquis if no further bleeding noted on endoscopy today and no further melena can resume
tomorrow. Was initially supposed to resume today but given that she had melena and was readmitted would resume tomorrow
Original Note:
Consultation
-
Date/Time Consultation Requested: 08/08/2414
Date/Time Consultation Performed: 08/08/24644
Requesting Provider: Jo Westfall MD
Performing Provider: JOSE A Perez, Vanesa Quan MD
Reason for Consultation: GI bleed
Medical History
Chief Complaint / HPI
Chief Complaint: dizziness, shortness of breath
History of Present Illness:
Pt is a 69yo with hx Afib with Eliquis use, colon polyps, gastric ulcer, melanoma, hypothyroidism, hypercholesterolemia, sleep apnea with admission 08/03-08/06 with UGI bleeding with prior minimal NSAID use for back pain. Pt also admits to recent
cataract surgery. EGD 08/04 with non bleeding gastric ulcers and non bleeding antral ulcer with visible vessel with clip placement. no bx taken with recent anticoagulation use. She was to continued PPI BID for 8 weeks then daily. Strict NSAID
avoidance and to restart Eliquis 08/08. Augustin then returned to ER 08/07 with continued black stools daily, shortness of breath and dizziness. hbg was 9.8 on discharge 08/06 and now 10.2 with drop to 9.4 after return with heme + stool in ER. CT chest
also completed with neg PE.
Pt admits to nausea, dizziness and shortness of breath and some constipation with only 1 stool per day. She otherwise denies dysphagia, GERD, abdominal pain, diarrhea or red stools.
08/04/24- EGD stone non bleeding gastric ulcers with clean base forest III, in gastric antrum, non bleeding gastric antral ulcer non bleeding with visible vessel Redfox IIa. no thermal therapy completed with recent Anticoagulation and 3 clips
placed no bleeding after placement. otherwise normal no bx taken.
09/2023- EGD [facility]- normal esophagus, mucosal nodule, erythema in antrum, normal stomach and duodenum bx no dysphasia or H pylori- nodule squamous mucosal with focal glycogenic acanthosis
09/2023 colonoscopy [facility]- normal ileum, diverticulosis, 2 1-2 mm polyp rectum and hepatic flexure, 2 4-5 mm polyp AC, cecum, IH bx TA AC and cecum , HP rectum and Hf
06/2023- EGD [facility] 2 cm HH non bleeding gastric ulcer with flat pigmented spot normal gastric body and duodenum bx neg H pylori, metaplasia or carcinoma
Past Medical History
Past Medical History: Arrhythmias (afib with Eliquis use currently on hold), Cancer (melanoma), Hypercholesterolemia and Other ( gastric ulcer, TA colon polyps, hypothyroidism, back pain, anxiety, sleep apnea)
Past Surgical History: Other (Cataract surgery-recent completed and due to have other eye completed )
Social History
Tobacco: Non-Smoker
Alcohol: Occasional
Drug: None
Personal:
Living: With Family
Employment: Employed
Family History
Family History: Reviewed & Not Pertinent
Allergies / Home Medications
Allergy/AdvReac Type Severity Reaction Status Date / Time
No Known Allergies Allergy Verified 08/03/24 12:30
�Medication �Instructions �Recorded
levothyroxine 50 mcg tablet 50 mcg PO DAILY Thyroid 04/10/13
atorvastatin 20 mg tablet 20 mg PO QPM High Cholesterol 04/17/21
apixaban 5 mg tablet (Eliquis) 5 mg PO BID Blood Clot 06/17/23
Prevention/Tx
sertraline 25 mg tablet 25 mg PO DAILY Mental 06/17/23
Health/Anxiety
diltiazem HCl 240 mg capsule,24 240 mg PO DAILY #90 caps 07/22/23
hr,extended release
ketorolac 0.5 % eye drops 1 drp BOTH EYES TID 08/03/24
moxifloxacin 0.5 % eye drops 1 drp RIGHT EYE QID 08/03/24
prednisolone acetate 1 % eye 1 drp RIGHT EYE QID 08/03/24
drops,suspension
therapeutic multivitamin 1 tab PO DAILY 08/03/24
pantoprazole 40 mg tablet,delayed 40 mg PO BID Gastrointestinal 08/06/24
release issue #60 tabs
Review of Systems
-
History Source: Patient
Constitutional: Reports Weight Loss (few lbs with decrease eating over last week)
EENT: Reports No Symptoms
Respiratory: Reports Trouble Breathing
Cardiac: Reports No Symptoms
Abdomen/GI: Reports Nausea and Black Stools
Musculoskeletal: Reports Joint Pain
Neurological: Reports Dizzy
Endocrine: Reports No Symptoms
Hematologic/Lymphatic: Reports Bleeding
Vital Signs
Temp Pulse Resp BP Pulse Ox
97.5 F 74 16 105/68 94
08/08/24 02:45 08/08/24 06:14 08/08/24 02:45 08/08/24 06:14 08/08/24 06:14
Physical Exam
Exam
General: Well Developed, Well Nourished and No Apparent Distress
HEENT: Normocephalic and Anicteric
Respiratory: Clear
Cardiac: Regular Rhythm
GI: Soft, Non Tender and Non Distended
Musculoskeletal: No Clubbing and No Cyanosis
Skin: Warm and Dry
Neuro: Awake, Alert and AO x 3
Psych: Calm
Results
WBC 8.9 10^3/uL (4.8-10.8) 08/08/24 06:24
Hgb 9.4 g/dL (12.0-16.0) L 08/08/24 06:24
Hct 27.8 % (37.0-47.0) L 08/08/24 06:24
MCV 91.4 fL (81.0-99.0) 08/08/24 06:24
Plt Count 257 10^3/uL (130-400) 08/08/24 06:24
Absolute Neuts (auto) 6.3 10^3/uL (1.4-6.5) 08/07/24 17:25
PT 13.9 Sec (11.4-14.6) 08/07/24 17:25
INR 1.09 08/07/24 17:25
APTT 26.6 Sec (23.4-35.0) 08/07/24 17:25
Sodium 136 mmol/L (135-145) 08/07/24 17:25
Potassium 4.3 mmol/L (3.5-5.1) 08/07/24 17:25
Chloride 100 mmol/L (98-107) 08/07/24 17:25
Carbon Dioxide 23 mmol/L (22-30) 08/07/24 17:25
BUN 19 mg/dl (7-17) H 08/07/24 17:25
Creatinine 0.9 mg/dL (0.6-1.0) 08/07/24 17:25
Calcium 10.2 mg/dl (8.4-10.2) 08/07/24 17:25
Total Bilirubin 0.8 mg/dl (0.2-1.3) 08/07/24 17:25
AST 25 U/L (14-36) 08/07/24 17:25
ALT 22 U/L (0-35) 08/07/24 17:25
Alkaline Phosphatase 75 U/L (38-126) 08/07/24 17:25
Diagnostic Image Results:
08/07/24 CT Chest Pe Study
No evidence of central pulmonary embolism.
Cardiomegaly.
Prior GI Procedures:
08/04/24- EGD stone non bleeding gastric ulcers with clean base forest III, in gastric antrum, non bleeding gastric antral ulcer non bleeding with visible vessel Foreset IIa. no thermal therapy completed with recent Anticoagulation and 3 clips
placed no bleeding after placement. otherwise normal no bx taken.
09/2023- EGD [facility]- normal esophagus, mucosal nodule, erythema in antrum, normal stomach and duodenum bx no dysphasia or H pylori- nodule squamous mucosal with focal glycogenic acanthosis
09/2023 colonoscopy [facility]- normal ileum, diverticulosis, 2 1-2 mm polyp rectum and hepatic flexure, 2 4-5 mm polyp AC, cecum, IH bx TA AC and cecum , HP rectum and Hf
06/2023- EGD [facility] 2 cm HH non bleeding gastric ulcer with flat pigmented spot normal gastric body and duodenum bx neg H pylori, metaplasia or carcinoma
Assessment / Plan
-
Pt is a 69yo with hx Afib with Eliquis use, colon polyps, gastric ulcer, melanoma, hypothyroidism, hypercholesterolemia, sleep apnea with admission 08/03-08/06 with UGI bleeding with prior minimal NSAID use. EGD 08/04 with non bleeding gastric ulcers
and non bleeding antral ulcer with visible vessel with clip placement. no bx taken with recent anticoagulation use. She was to continued PPI BID for 8 weeks then daily. Strick NSAID avoidance and to restart Eliquis 08/08. Charli then returned to ER
08/07 with continued black stools, shortness of breath and dizziness. hbg was 9.8 on discharge 08/06 and now 10.2 then 9.4 after return with heme + stool in ER.
-symptomatic anemia with black heme + stool in ER
-recent EGD with Gastric ulcer with non bleeding visible vessel gastric antrum s/p clip
recent cataract surgery
-afib on Eliquis prior to admission
other med problems:
-hx TA colon polyps
-melanoma
-hypothyroidism
-hypercholesterolemia
-sleep apnea
PLAN:etiology of dizziness and shortness of breath unclear -- recurrent GI bleeding with black stools but hbg relatively stable with normal BUN, related to visual changes with recent cataract surgery vs other--
CT PE study neg
cont Eliquis hold last dose last
NPO
cont PPI BID IV for now and BID x 8 weeks then daily on discharge
discussed timing of optimal dosing with patient
NSAID avoidance
reviewed with pt plan for EGD today to excluded any rebleeding of ulcer-- she is agreeable to proceed. If neg consider d/c later today and follow up with ophthalmology to rule out any component of dizziness with recent cataract surgery
timing of Eliquis restart to be determined after EGD as was to resume today
-
-
Thank you for consultation and allowing me to participate in the patient's care. Please call the nutrition representative GI physician during the after hours with any questions or concerns.
--- NOTE | 2024-08-08 08:34 | W.PN.HOSP.TC ---
Addendum entered and electronically signed by Avila Gordon MD 08/08/24 23:19:
Attending Addendum:
I saw and evaluated the patient. I reviewed the resident�s note and agree with findings and plan as documented in the resident�s note. Sub: seen post EGD in PACU, no further complaints. has not movels bowels since procedure. denies dizziness. would
like to go home. Full 12 point ROS reviewed and negative except as documented Exam: Vitals reviewed in chart GEN-NAD heart RRR ;ungs clear abd soft NT ND pos BS LE no edema
1. GI bleed
-recent melena status post EGD and clipping of nonbleeding ulcer. Hemoglobin is stable.
-She is hemodynamically stable and in no acute distress
- EGD 08/08- Non-bleeding gastric ulcers with no stigmata of bleeding. larger 10 mm ulcer with 2 intact clips
- Normal examined duodenum.
- No specimens collected.
- Resume Eliquis tomorrow if no further bleeding
- Avoid NSAIDs
- f/u EGD/GI appt in 8 weeks , f/u H pylori
- PANIAGUA may be from anemia, start Oral Iron with Vitamin as OP
- DC home from PACU
2. Light headedness
-hemodynamically stable, no ECG ischemia and negative CTA.
- check orthostatics - neg
- trend h/h - stable
- iron supplementation as OP
- outpatient cardiac eval with echo, stress. Last stress was 1.5 years ago and normal. No family hx.
3. Hypothyroid
- continue synthroid
4. AFIB - s/p ablation. regular pulse rate and rhythm
- continue dilt
- holding eliquis
- restart in am
DVT PPX - SCDs
Code status - full code
Time spent coordinating care, DC planning, review of DC plan of care with resident, transition of care, review of records, med rec/scripts sent electronically, consults, notes, d/w consultants/GI-ok for dc, nursing, and CM� 36 mins
Original Note:
Today's Communication/Plan
-
There was no active bleeding seen on the repeat EGD conducted today. Gastroenterology is calm and assessed her and believes that she is appropriate for discharge home at the present time. She should be followed up by her stockkeeper in the
outpatient setting. She should make note to take her PPI twice a day for 8 weeks and then after the 8 weeks are completed she should take her PPI once a day indefinitely following her discharge.
Assessment / Plan
Assessment / Plan
HPI: Patient is a 69-year-old female who presented on 08/03/2024 for evaluation of mild epigastric discomfort and 1 episode of black stool. The patient takes Eliquis due to a history of atrial fibrillation. Currently she is in sinus rhythm and had
an ablation in the past. She took her Eliquis dose the morning of her presentation on the . She had a black stool the morning of her initial presentation. Apparently, she had a very similar presentation of upper GI bleed last year. Last year
she was admitted for black stools and had an endoscopy at that time showing a 2 cm hiatal hernia and a nonbleeding gastric ulcer. In the emergency department, they found a melanotic stool during rectal exam. The patient was admitted and started on
a PPI bolus and drip and gastroenterology was consulted. During her hospital course she was initially kept npo. Eliquis was held and avoidance of all NSAIDs as well. An EGD was conducted showing a few nonbleeding gastric ulcers with a clean ulcer
base found in the gastric antrum. A total of 3 hemoclips were placed for hemostasis. Following her EGD they continued the IV PPIs and trended hemoglobin with serial CBCs. Her diet was advanced and she was resumed on her Eliquis with
recommendation to continue Protonix 40 mg twice daily for 8 weeks and then daily indefinitely. After she was medically stable, she was discharged on 08/06/2024. Unfortunately, the next day on 08/06/2024 the patient Krystal presented to the emergency
department with concerns of dyspnea on exertion/shortness of breath and dizziness. She spoke to her physician who recommended she come back to the hospital. In the emergency department she was hemodynamically stable with a blood pressure of 120/55
and a pulse of 75 he hemoglobin has increased from 9.8 the day prior to 10.2 on 08/07/2024.
Assessment/Plan:
-Dyspnea on exertion/shortness of breath and dizziness secondary to anemia:
Hemoglobin was 10.2 in the emergency department and is 9.4 on 08/08/2024
CT of the chest for pulmonary embolism was conducted showing no evidence of central pulmonary embolism
Patient recently underwent an EGD with gastric ulcer seen that was nonbleeding visible vessel which was clipped.
Patient was on Eliquis prior to admission due to atrial fibrillation -Eliquis currently held
IV fluid support
Trend H&H
GI consult
-Recurrent GI bleeding with black stools
Holding Eliquis
Avoid NSAIDs
N.p.o. status
Continue IV PPI for now and then once the patient is medically stable change her over to an oral PPI twice a day for 8 weeks and then daily after discharge.
Repeat EGD to exclude any rebleeding ulcer. If negative possible discharge and follow-up with ophthalmology to rule out any component of dizziness due to recent cataract surgery.
EGD conducted shows no bleeding or acute abnormalities.
GI came and assessed the patient and believes that she is appropriate for discharge to home. Recommendation that she resume her Eliquis tomorrow.
PPI twice a day for 8 weeks and then daily after discharge.
-Hypothyroidism:
Continue Synthroid
-Atrial fibrillation s/p ablation: Patient currently sinus rhythm with a regular pulse rate
Continue her home medications
DVT prophylaxis are sequential compression devices
Full CODE STATUS
Anticipated Discharge: 24 - 48 hours
Subjective/Interval History
-
Date of Service: August 08, 2024
Met with patient at the bedside downstairs in the emergency department. Patient seen resting in the bed comfortably watching television. She feels much better than she did prior to her presentation to the emergency department. She believes that
she is at her baseline but worries about the possibility of an ongoing GI bleed that was not resolved on her prior admission. She is aware of her normal findings on subsequent EGD conducted this morning today.
Objective Data
-
Labs:
Laboratory Results
08/08/24
06:24
WBC 8.9
Hgb 9.4 L
Hct 27.8 L
Plt Count 257
Vital Signs:
Vital Signs
Temp Pulse Resp BP Pulse Ox
97.5 F 74 16 105/68 94
08/08/24 02:45 08/08/24 06:14 08/08/24 02:45 08/08/24 06:14 08/08/24 06:14
Review of Systems
-
History Source: Patient
Constitutional: Reports No Symptoms
EENT: Reports No Symptoms Reported
Respiratory: Reports No Symptoms
Cardiac: Reports No Symptoms
Abdomen/GI: Reports No Symptoms
Breast: Reports No Symptoms
Genitourinary: Reports No Symptoms
Musculoskeletal: Reports No Symptoms
Skin: Reports No Symptoms
Neuro: Reports No Symptoms
Endocrine: Reports No Symptoms
Hematologic / Lymphatic: Reports No Symptoms
Allergy / Immunology: Reports No Symptoms
Physical Exam
-
General: Well Developed, Well Nourished, No Apparent Distress and Comfortable
HEENT: Normocephalic, Atraumatic and Moist Mucous Membranes
Respiratory: Clear to Auscultation
Cardiac: Regular Rhythm and S1/S2
Breast: Deferred by me
GI: Soft, Nontender, Nondistended and Normal Bowel Sounds
Genito-urinary: Deferred by me
Musculoskeletal: No Clubbing, No Cyanosis and No Edema
Skin: Warm and Dry
Neuro: Awake, Alert, Oriented and AO x 3
Psych: Calm
[2024-08-08] MEDS: CARDIZEM CD 240 MG PO (08:40)
[2024-08-08] MEDS: PROTONIX IV 40 MG IV (08:40)
[2024-08-08] MEDS: NSS (PRESERVATIVE FREE) 10 ML IV (08:41)
[2024-08-08] MEDS: ZOLOFT 25 MG PO (08:41)
[2024-08-08] MEDS: ACULAR 0.5% EYE DROPS 1 DROP BOTH EYES (08:58)
--- NOTE | 2024-08-08 12:12 | W.PN.UPDATE ---
Update Note
Progress Note Update
No active bleeding on repeat EGD, intact clips seen in antrum, OK to Dc home. resume Eliquis tomorrow. Repeat EGD in 8 weeks to check for healing and biopsy also to r/o H.Pylori. Avoid NSAIDs. Start oral Iron with Vitamin C, PANIAGUA may be from anemia
[2024-08-08] MEDS: FLUAD (65 yr+) 2024-2025 FORMULA 0.5 ML IM (15:23)
--- NOTE | 2024-08-08 17:49 | W.DCSUMMARY ---
Addendum entered and electronically signed by Avila Gordon MD 08/08/24 23:21:
Read, reviewed, and agree. See same day progress note for additional details. restart eliquis in 24 hours
Ryan Gordon MD
Original Note:
Documented by User: Seymour Zaragoza MD, Resident 08/08/24 17:54
Discharge Summary
Discharge Data
Date of Admission: 08/07/24
Date of Discharge: 08/08/24
-
Pending Results: No
Hospital Course
Patient is a 69-year-old female who presented on 08/03/2024 for evaluation of mild epigastric discomfort and 1 episode of black stool. The patient takes Eliquis due to a history of atrial fibrillation. Currently she is in sinus rhythm and had an
ablation in the past. She took her Eliquis dose the morning of her presentation on the . She had a black stool the morning of her initial presentation. Apparently, she had a very similar presentation of upper GI bleed last year. Last year
she was admitted for black stools and had an endoscopy at that time showing a 2 cm hiatal hernia and a nonbleeding gastric ulcer. In the emergency department, they found a melanotic stool during rectal exam. The patient was admitted and started on
a PPI bolus and drip and gastroenterology was consulted. During her hospital course she was initially kept npo. Eliquis was held and avoidance of all NSAIDs as well. An EGD was conducted showing a few nonbleeding gastric ulcers with a clean ulcer
base found in the gastric antrum. A total of 3 hemoclips were placed for hemostasis. Following her EGD they continued the IV PPIs and trended hemoglobin with serial CBCs. Her diet was advanced and she was resumed on her Eliquis with
recommendation to continue Protonix 40 mg twice daily for 8 weeks and then daily indefinitely. After she was medically stable, she was discharged on 08/06/2024. Unfortunately, the next day on 08/06/2024 the patient Krystal presented to the emergency
department with concerns of dyspnea on exertion/shortness of breath and dizziness. She spoke to her physician who recommended she come back to the hospital. In the emergency department she was hemodynamically stable with a blood pressure of 120/55
and a pulse of 75 he hemoglobin has increased from 9.8 the day prior to 10.2 on 08/07/2024.
She underwent a repeat EGD on 08/08/2024 which fortunately showed no active bleeding, and intact clips were seen in the antrum. Gastroenterology assessed the patient and believe that she is appropriate for follow-up in the outpatient setting. It is
recommended that the patient resume her Eliquis tomorrow. Gastroenterology also recommends a repeat EGD in 8 weeks to check healing and also to biopsy in order to rule out H. pylori. It is important that the patient avoid NSAIDs. Patient should
also start oral iron with vitamin C. The patient believes that she is back at her baseline and no longer feels dizzy, weak, or has shortness of breath. She would like to be discharged today.
The patient has reached maximal benefit from this hospital visit and is appropriate for discharge at the present time. The patient has been recommended to follow-up with gastroenterology for her recurrent GI bleed and for a follow-up EGD to assess
the healing of her prior procedure. The patient is appropriate for follow-up in the outpatient setting with her primary care provider 1 to 2 weeks after discharge from the hospital.
Discharge Plan
-
Patient Disposition: Home (Routine Discharge)
Discharge Diagnosis/Procedures: Shortness of breath, weakness, dizziness
Condition: Good
Diet: No restrictions
Activity: No restrictions
Driving Restrictions: Avoid driving for a few days until back at [facility]
Bathing Restrictions: None
Referrals:
Magnus Miles Jr., DO [Family Provider] - in one to two weeks
Additional Discharge Medication Instructions: Patient may resume Eliquis tomorrow. Patient should continue her PPI twice daily for 8 weeks and then daily indefinitely given prior history of recurrent peptic ulcer disease with GI bleed on
anticoagulation. She should strictly avoid NSAIDs.
Prescriptions:
Continued
levothyroxine 50 MCG tablet
50 mcg PO DAILY
atorvastatin 20 MG tablet
20 mg PO QPM
sertraline 25 mg Tablet
25 mg PO DAILY
Eliquis 5 mg Tablet
5 mg PO BID
diltiazem HCl 240 mg capsule,extended release 24 hr
240 mg PO DAILY Qty: 90 5RF
prednisolone acetate 1 % drops,suspension
1 drp RIGHT EYE QID
moxifloxacin 0.5 % drops
1 drp RIGHT EYE QID
therapeutic multivitamin Tablet
1 tab PO DAILY
ketorolac 0.5 % Drops
1 drp BOTH EYES TID
pantoprazole 40 mg tablet,delayed release (DR/EC)
40 mg PO BID Qty: 60 0RF
Discharge Orders:
Discharge Patient (As Directed); Ordered 08/08/24
Ordered By: Seymour Zaragoza
Discharge Date and Time
Discharge Date/Time: 08/08/24 15:30
Print Language: UZBEK

Documented by User: Avila Gordon MD 08/08/24 23:12
Discharge Summary
Discharge Data
Date of Admission: 08/07/24
Date of Discharge: 08/08/24
Discharge Plan
-
Patient Disposition: Home (Routine Discharge)
Discharge Diagnosis/Procedures: Shortness of breath, weakness, dizziness
Condition: Good
Diet: No restrictions
Activity: No restrictions
Driving Restrictions: Avoid driving for a few days until back at [facility]
Bathing Restrictions: None
Referrals:
Magnus Miles Jr., [Family Provider] - in one to two weeks
Additional Discharge Medication Instructions: Patient may resume Eliquis tomorrow. Patient should continue her PPI twice daily for 8 weeks and then daily indefinitely given prior history of recurrent peptic ulcer disease with GI bleed on
anticoagulation. She should strictly avoid NSAIDs.
Prescriptions:
Continued
levothyroxine 50 MCG tablet
50 mcg PO DAILY
atorvastatin 20 MG tablet
20 mg PO QPM
sertraline 25 mg Tablet
25 mg PO DAILY
Eliquis 5 mg Tablet
5 mg PO BID
diltiazem HCl 240 mg capsule,extended release 24 hr
240 mg PO DAILY Qty: 90 5RF
prednisolone acetate 1 % drops,suspension
1 drp RIGHT EYE QID
moxifloxacin 0.5 % drops
1 drp RIGHT EYE QID
therapeutic multivitamin Tablet
1 tab PO DAILY
ketorolac 0.5 % Drops
1 drp BOTH EYES TID
pantoprazole 40 mg tablet,delayed release (DR/EC)
40 mg PO BID Qty: 60 0RF
Discharge Orders:
Discharge Patient (As Directed); Ordered 08/08/24
Ordered By: Seymour Zaragoza
Discharge Date and Time
Discharge Date/Time: 08/08/24 15:30
Print Language: UZBEK
== END 2024-08-08 15:30 | disposition home or self-care (01) ==
LOC: ED 23:49
PROVIDERS: ADMITTING PHYSICIAN Internal Medicine; ATTENDING PHYSICIAN Family Medicine; CONSULT PHYSICIAN Internal Medicine Gastroenterology; EMERGENCY PHYSICIAN Emergency Medicine; FAMILY PHYSICIAN Family Medicine
DX: K25.4 Chronic or unspecified gastric ulcer with hemorrhage (principal); R06.02 Shortness of breath; R42 Dizziness and giddiness; K92.1 Melena; R06.09 Other forms of dyspnea; I48.0 Paroxysmal atrial fibrillation; E78.00 Pure hypercholesterolemia, unspecified; F41.9 Anxiety disorder, unspecified; G47.30 Sleep apnea, unspecified; I51.7 Cardiomegaly; D62 Acute posthemorrhagic anemia; K44.9 Diaphragmatic hernia without obstruction or gangrene; E03.9 Hypothyroidism, unspecified; Z82.49 Family history of ischemic heart disease and other diseases of the circulatory system; Z79.01 Long term (current) use of anticoagulants; Z90.49 Acquired absence of other specified parts of digestive tract; Z79.890 Hormone replacement therapy; Z86.010 Personal history of colon polyps; Z87.11 Personal history of peptic ulcer disease; Z23 Encounter for immunization
CPT/HCPCS: 43235; 71275; 80053; 82728; 83540; 83550; 85025; 85027; 85610; 85730; 86850; 86900; 86901; 90662; 93005; 99285; G0008; G0378; Q9967

== ENCOUNTER → 2024-08-21 10:13 | Outpatient (REF) | payer MEDICARE, OTHER, SELFPAY | LOC: HWRCS 10:13 | PROVIDERS: ATTENDING PHYSICIAN Family Medicine | DX: R01.1 Cardiac murmur, unspecified (principal) | CPT/HCPCS: 93306 ==

== ENCOUNTER → 2024-10-10 06:27 | Day surgery (SDC) | payer MEDICARE, OTHER, SELFPAY | LOC: GI 06:27 | PROVIDERS: ATTENDING PHYSICIAN Internal Medicine Gastroenterology | DX: K31.89 Other diseases of stomach and duodenum (principal); K25.9 Gastric ulcer, unspecified as acute or chronic, without hemorrhage or perforation; K25.0 Acute gastric ulcer with hemorrhage | CPT/HCPCS: 43239; 88305; 88342 ==

== ENCOUNTER → 2025-09-13 18:32 | Outpatient (REF) | payer MEDICARE, OTHER, SELFPAY | LOC: PAVMRI 18:32 | PROVIDERS: ATTENDING PHYSICIAN Family Medicine | DX: M17.12 Unilateral primary osteoarthritis, left knee (principal); M17.11 Unilateral primary osteoarthritis, right knee | CPT/HCPCS: 73721 ==